=== PATIENT | male | born 2000 | race Caucasian/White ===

== ENCOUNTER 2021-02-11 17:54 | Emergency (ER) | payer OTHER ==
[~2021-02-11] VITALS: Ht 172.7 cm; Wt 118.2 kg
[2021-02-11 18:16] VITALS: BP 148/74; TEMP 98
[2021-02-11 20:15] VITALS: PULSE 71
== END 2021-02-11 20:16 | disposition home or self-care (01) ==
LOC: COL.ER 17:54
DX: R07.9 Chest pain, unspecified (principal)

== ENCOUNTER → 2021-03-08 | Outpatient (CLI) | payer OTHER | LOC: COL.RAD 12:41 | DX: K76.0 Fatty (change of) liver, not elsewhere classified (principal); K31.89 Other diseases of stomach and duodenum | CPT/HCPCS: Q9967 ==